=== PATIENT | male | born 1990 | race Caucasian/White ===

== ENCOUNTER 2019-01-23 00:09 | Emergency (ER) | payer SELFPAY ==
[2019-01-23] MEDS ORDERED: MVI, Adult with Vitamin K 10 ML, Folic Acid 1 MG, Thiamine 100 MG in Lactated Ringers 1... IV ONE ×4 (00:13)
[2019-01-23 00:21] VITALS: BP 145/97; PULSE 117
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
[2019-01-23 00:44] LABS: ANION GAP 14.1; CHLORIDE,CL 106 mmol/L (101-111); SODIUM,NA 140 mmol/L (135-145)
[2019-01-23 00:48] LABS: ACETAMINOPHEN < 10 ug/mL
== END 2019-01-23 01:38 ==
LOC: DL.ED 00:09
DX: F10.10 Alcohol abuse, uncomplicated (principal); F17.210 Nicotine dependence, cigarettes, uncomplicated; Y90.8 Blood alcohol level of 240 mg/100 ml or more
CPT/HCPCS: 36415; 80053; 80305; 80320; 80329; 81001; 85025; 96374; 99283; J3411; J7120; G0480; J3490

== ENCOUNTER 2019-07-11 01:26 | Emergency (ER) | payer SELFPAY ==
[2019-07-11 01:34] VITALS: BP 135/86; PULSE 100
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
[2019-07-11] MEDS ORDERED: Diphtheria,Pertussis(Acell),Tetanus Vaccine 0.5 ML SDV IM ONE (01:42)
== END 2019-07-11 01:50 ==
LOC: DL.ED 01:26
DX: S01.01XA Laceration without foreign body of scalp, initial encounter (principal); W22.8XXA Striking against or struck by other objects, initial encounter; Z23 Encounter for immunization
CPT/HCPCS: 12001; 90471; 90715; 99282; 99283

== ENCOUNTER 2019-07-22 15:50 | Emergency (ER) | payer SELFPAY ==
[2019-07-22 16:24] VITALS: BP 130/75
--- NOTE | 2019-07-22 16:24 | EDM.PDOC ---
Scribed by Tomasa Benitez 07/22/19 [id number] for Hira Jasso MD ED HPI GENERAL MEDICAL PROBLEM - General Chief Complaint: Wound Recheck Stated Complaint: BRITTA IN HEAD NEED TO BE TAKEN OUT Time Seen by Provider: 07/22/19 16:19 Source of Information: Reports: Patient, RN, RN Notes Reviewed History Limitations: Reports: No Limitations - History of Present Illness INITIAL COMMENTS - FREE TEXT/NARRATIVE: Patient presents to ER for staple removal from left frontal scalp. The wound is well healed and ready for britta to be removed. Location: Reports: Head Severity: Mild - Related Data Allergies Allergy/AdvReac Type Severity Reaction Status Date / Time No Known Allergies Allergy Verified 01/23/19 00:14 Home Meds: Home Meds . [No Known Home Meds] 07/13/15 [History] Past Medical History HEENT History: Reports: None Cardiovascular History: Reports: None Respiratory History: Reports: None Gastrointestinal History: Reports: None Genitourinary History: Reports: None Musculoskeletal History: Reports: None Neurological History: Reports: None Psychiatric History: Reports: None Endocrine/Metabolic History: Reports: None Hematologic History: Reports: None Immunologic History: Reports: None Oncologic (Cancer) History: Reports: None Dermatologic History: Reports: None - Infectious Disease History Infectious Disease History: Reports: None - Past Surgical History Head Surgeries/Procedures: Reports: None Social & Family History - Family History Family Medical History: Noncontributory - Caffeine Use Caffeine Use: Reports: None ED ROS GENERAL - Review of Systems Review Of Systems: Comprehensive ROS is negative, except as noted in HPI. ED EXAM, SKIN/RASH Exam: See Below Exam Limited By: No Limitations General Appearance: Alert, WD/WN, No Apparent Distress Head: Normocephalic, Other (well healed laceration on left gnosticism. Two intact britta. ) Respiratory/Chest: No Respiratory Distress Neurological: Alert, CN II-XII Intact, No Motor/Sensory Deficits Skin: Warm, Dry, Intact Course - Re-Assessments/Exams Free Text/Narrative Re-Assessment/Exam: 07/22/19 16:22 Turney removed by RN. No complications. Departure - Departure Time of Disposition: 16:23 Disposition: Home, Self-Care 01 Condition: Good Clinical Impression: Encounter for removal of britta - Discharge Information *PRESCRIPTION DRUG MONITORING PROGRAM REVIEWED*: Not Applicable *COPY OF PRESCRIPTION DRUG MONITORING REPORT IN PATIENT KEVIN: Not Applicable Instructions: Wound Closure Removal, Care After Forms: ED Department Discharge Additional Instructions: Follow up in clinic if any further problems. Sepsis Event Note - Focused Exam Date Exam was Performed: 07/22/19 Time Exam was Performed: 16:24 I have read and agree with the documentation that has been completed regarding this visit. By signing this record, I attest that the documentation was completed in my physical presence and is an accurate record of the encounter.
== END 2019-07-22 16:41 | disposition home or self-care (01) ==
LOC: DL.ED 15:50
DX: S01.01XD Laceration without foreign body of scalp, subsequent encounter (principal); X58.XXXD Exposure to other specified factors, subsequent encounter
CPT/HCPCS: 99281

== ENCOUNTER 2019-09-27 14:10 | Emergency (ER) | payer SELFPAY ==
[2019-09-27 14:25] VITALS: BP 135/84; PULSE 94
[2019-09-27] MEDS ORDERED: Lidocaine 5% Oint 35.44 GM Tube TOP ONE (14:30)
[2019-09-27] MEDS ORDERED: Silver Sulfadiazine 1% Crm 50 GM Tube TOP ONE (14:30)
[2019-09-27] MEDS ORDERED: Ibuprofen 800 MG Tab PO ONE (14:31)
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
--- NOTE | 2019-09-27 15:09 | CR ---
PROCEDURE INFORMATION: Exam: XR Right Ankle Exam date and time: 09/27/2019 2:39 PM Age: 29 years old Clinical indication: Other: Pain; Additional info: Fall, RT knee and RT ankle injury TECHNIQUE: Imaging protocol: XR Right ankle. Views: 3 or more views. COMPARISON: No relevant prior studies available. FINDINGS: Bones/joints: There is no evidence of acute fracture. There is no evidence of joint malalignment or dislocation. Soft tissues: There are no soft tissue masses or fluid collections. IMPRESSION: 1. No evidence of acute fracture. 2. No evidence of acute dislocation.
--- NOTE | 2019-09-27 15:09 | CR ---
PROCEDURE INFORMATION: Exam: XR Right Knee Exam date and time: 09/27/2019 2:43 PM Age: 29 years old Clinical indication: Other: Pain; Additional info: Fall, RT knee and RT ankle injury TECHNIQUE: Imaging protocol: XR Right knee. Views: 3 views. COMPARISON: No relevant prior studies available. FINDINGS: Bones/joints: There is no evidence of acute fracture. There is no evidence of joint malalignment or dislocation. Soft tissues: There are no soft tissue masses or fluid collections. IMPRESSION: 1. No evidence of acute fracture. 2. No evidence of acute dislocation.
== END 2019-09-27 15:31 | disposition home or self-care (01) ==
LOC: DL.ED 14:10
DX: T23.142A Burn of first degree of multiple left fingers (nail), including thumb, initial encounter (principal); S83.91XA Sprain of unspecified site of right knee, initial encounter; S93.491A Sprain of other ligament of right ankle, initial encounter; F17.210 Nicotine dependence, cigarettes, uncomplicated; X97.XXXA Assault by smoke, fire and flames, initial encounter
CPT/HCPCS: 16020; 73562; 73610; 99283; A9270

== ENCOUNTER 2020-02-02 20:18 | Emergency (ER) | payer SELFPAY ==
[2020-02-02 20:45] VITALS: BP 136/88; PULSE 110
[2020-02-02] MEDS ORDERED: Lidocaine 1% with EPINEPHrine 1:100,000 20 ML MDV INJECT ONE (21:24)
--- NOTE | 2020-02-02 22:01 | CT ---
PROCEDURE INFORMATION: Exam: CT Head Without Contrast Exam date and time: 02/02/2020 9:09 PM Age: 29 years old Clinical indication: Other: Fell down stairs left face jaw pain, lac R tooth TECHNIQUE: Imaging protocol: Computed tomography of the head without contrast. Radiation optimization: All CT scans at this facility use at least one of these dose optimization techniques: automated exposure control; mA and/or kV adjustment per patient size (includes targeted exams where dose is matched to clinical indication); or iterative reconstruction. COMPARISON: No relevant prior studies available. FINDINGS: Brain: No mass effect or midline shift. No abnormal densities are seen intracranially; no sign of acute intracranial hemorrhage or cerebral edema. Cerebral ventricles: No ventriculomegaly. Bones/joints: Skull base and overlying calvarium are intact. No lytic or osteosclerotic lesions. Paranasal sinuses: Visualized sinuses are unremarkable. No fluid levels. Mastoid air cells: Visualized mastoid air cells are well aerated. Soft tissues: Unremarkable. IMPRESSION: No sign of acute intracranial injury or skull fracture.
--- NOTE | 2020-02-02 22:05 | CT ---
PROCEDURE INFORMATION: Exam: CT Maxillofacial Without Contrast Exam date and time: 02/02/2020 9:09 PM Age: 29 years old Clinical indication: Other: Fell down stairs left face jaw pain, lac R tooth TECHNIQUE: Imaging protocol: Computed tomography images of the face without contrast. Radiation optimization: All CT scans at this facility use at least one of these dose optimization techniques: automated exposure control; mA and/or kV adjustment per patient size (includes targeted exams where dose is matched to clinical indication); or iterative reconstruction. COMPARISON: No relevant prior studies available. FINDINGS: Orbital cavity: Orbital floors, roofs, lateral diallo and the lamina papyracea are intact. There is no retro-orbital emphysema or stranding/hemorrhage of intraconal fat. Globes are normal in contour and density. Bones/joints: 2 mm displaced fracture right body of mandible involving socket for right lateral incisor. Nondisplaced oblique fracture through left coronoid and mandibular ramus. Paranasal sinuses: Normal. No air-fluid levels. Soft tissues: Soft tissue emphysema right floor of mouth. IMPRESSION: 1. 2 mm displaced fracture right body of mandible involving socket for right lateral incisor. 2. Nondisplaced oblique fracture through left coronoid and mandibular ramus.
--- NOTE | 2020-02-02 22:07 | CT ---
PROCEDURE INFORMATION: Exam: CT Cervical Spine Without Contrast Exam date and time: 02/02/2020 9:09 PM Age: 29 years old Clinical indication: Other: Fell down stairs left face jaw pain, lac R tooth TECHNIQUE: Imaging protocol: Computed tomography images of the cervical spine without contrast. Radiation optimization: All CT scans at this facility use at least one of these dose optimization techniques: automated exposure control; mA and/or kV adjustment per patient size (includes targeted exams where dose is matched to clinical indication); or iterative reconstruction. COMPARISON: No relevant prior studies available. FINDINGS: Bones/joints: There are no perched or locked facets and the craniocervical relationship is normal. No acute cervical spine fracture. Discs/Spinal canal/Neural foramina: Age-appropriate. Lungs: Lung apices are normal. Soft tissues: Unremarkable. IMPRESSION: 1. No sign of acute cervical spine injury. 2. Mandibular fractures, reported elsewhere.
[2020-02-02] MEDS ORDERED: fentaNYL 100 MCG/2 ML SDV IVPUSH ONE ×2 (22:27→23:15)
[2020-02-02] MEDS ORDERED: Ondansetron 4 MG/2 ML SDV IVPUSH ONE (22:27)
[2020-02-02 22:43] LABS: ANION GAP 9.9 mEq/L (7-13); CHLORIDE,CL 101 mmol/L (98-107); SODIUM,NA 137 mmol/L (136-145)
[2020-02-02] MEDS ORDERED: cefTRIAXone 1 GM in Sodium Chloride 0.9% 50 ML IV ONE (23:08)
--- NOTE | 2020-02-02 23:49 | EDM.PDOC ---
ED HPI GENERAL MEDICAL PROBLEM - General Chief Complaint: Laceration Stated Complaint: BOTTOM LIP INSIDE LACERATION Time Seen by Provider: 02/02/20 20:45 Source of Information: Reports: Patient History Limitations: Reports: No Limitations - History of Present Illness INITIAL COMMENTS - FREE TEXT/NARRATIVE: ED ambulatory with c/o pain to lower chin and left side of face with cut to lower front tooth. States going fast down stairs, fell face forward landed on face no loss of consciousness, Denied other injury, Admits one drink earlier tonight. Right Lower Jaw Pain Score (Numeric/FACES): 5 - Related Data Allergies Allergy/AdvReac Type Severity Reaction Status Date / Time No Known Allergies Allergy Verified 02/02/20 20:33 Home Meds: Home Meds . [No Known Home Meds] 07/13/15 [History] Past Medical History HEENT History: Reports: None Cardiovascular History: Reports: None Respiratory History: Reports: None Gastrointestinal History: Reports: None Genitourinary History: Reports: None Musculoskeletal History: Reports: None Neurological History: Reports: None Psychiatric History: Reports: None Endocrine/Metabolic History: Reports: None Hematologic History: Reports: None Immunologic History: Reports: None Oncologic (Cancer) History: Reports: None Dermatologic History: Reports: None - Infectious Disease History Infectious Disease History: Reports: None - Past Surgical History Head Surgeries/Procedures: Reports: None Social & Family History - Family History Family Medical History: No Pertinent Family History - Tobacco Use Tobacco Use Status *Q: Current Every Day Tobacco User Years of Tobacco use: 16 Packs/Tins Daily: 1.5 Second Hand Smoke Exposure: Yes - Caffeine Use Caffeine Use: Reports: Coffee, Energy Drinks, Soda - Alcohol Use Date of Last Drink: 02/02/20 Time of Last Drink: 20:00 - Recreational Drug Use Recreational Drug Use: Yes Recreational Drug Type: Reports: Marijuana/Hashish Recreational Drug Use Frequency: Daily - Living Situation & Occupation Living situation: Reports: with Family ED ROS GENERAL - Review of Systems Review Of Systems: Comprehensive ROS is negative, except as noted in HPI. ED EXAM, SKIN/RASH Exam: See Below Exam Limited By: No Limitations General Appearance: Alert, Mild Distress, Thin Eye Exam: Bilateral Eye: EOMI Ears: Normal External Exam Nose: Normal Inspection Throat/Mouth: Normal Inspection, No Airway Compromise. No: Normal Teeth, Normal Voice Head: Normocephalic, Facial Tenderness (left and right lower) Neck: Normal Inspection, Full Range of Motion, Other (cyst left neck). No: Tender Lateral, Tender Midline Respiratory/Chest: No Respiratory Distress, Lungs Clear, Normal Breath Sounds Cardiovascular: Normal Peripheral Pulses, Regular Rate, Rhythm GI/Abdominal: Normal Bowel Sounds, Non-Tender Back Exam: Normal Inspection, Full Range of Motion Extremities: Normal Inspection Neurological: Alert, Oriented, CN II-XII Intact, Normal Cognition Psychiatric: Normal Affect, Normal Mood Skin: Warm, Dry, Wound/Incision (5mm irregular laceration right lower gum base right incisor) Associated features: Tenderness Course - Vital Signs Last Recorded V/S: Last Vital Signs Temp 98.8 F 02/02/20 20:40 Pulse 110 H 02/02/20 20:40 Resp 16 02/02/20 20:40 BP 136/88 02/02/20 20:40 Pulse Ox 99 02/02/20 20:40 - Orders/Labs/Meds Labs: Laboratory Tests 02/02/20 02/02/20 02/02/20 Range/Units 22:01 22:01 23:48 WBC 14.2 H (5.0-10.0) 10^3/uL RBC 4.60 (4.6-6.2) 10^6/uL Hgb 16.4 (14.0-18.0) g/dL Hct 45.2 (40.0-54.0) % MCV 98.3 (80-100) fL MCH 35.7 H (27.0-34.0) pg MCHC 36.3 H (33.0-35.0) g/dL Plt Count 215 (150-450) 10^3/uL Neut % (Auto) 89.7 H (42.2-75.2) % Lymph % (Auto) 4.9 L (20.5-50.1) % Waldo % (Auto) 5.1 (2-8) % Eos % (Auto) 0.2 L (1.0-3.0) % Baso % (Auto) 0.1 (0.0-1.0) % Sodium 137 (136-145) mmol/L Potassium 3.9 (3.5-5.1) mmol/L Chloride 101 (98-107) mmol/L Carbon Dioxide 30 (21-32) mmol/L Anion Gap 9.9 (7-13) mEq/L BUN 10 (7-18) mg/dL Creatinine 0.93 (0.70-1.30) mg/dL Est Cr Clr Drug Dosing 104.32 mL/min Estimated GFR (MDRD) > 60 BUN/Creatinine Ratio 10.8 (No establ ref range) Glucose 100 H (74-99) mg/dL Calcium 9.1 (8.5-10.1) mg/dL Total Bilirubin 0.2 (0.2-1.0) mg/dL AST 17 (15-37) U/L ALT 30 (16-63) U/L Alkaline Phosphatase 79 (46-116) U/L Total Protein 7.2 (6.4-8.2) g/dL Albumin 4.4 (3.4-5.0) g/dL Globulin 2.8 Albumin/Globulin Ratio 1.6 Ethyl Alcohol < 3 (0) mg/dL SARS-CoV-2 RNA (ARON) Negative (NEGATIVE) Meds: Medications Discontinued Medications Generic Name Dose Route Start Last Admin Trade Name Juventino PRN Reason Stop Dose Admin Fentanyl 50 mcg 02/02/20 22:27 02/02/20 22:37 Sublimaze IVPUSH 02/02/20 22:28 50 mcg ONETIME ONE Administration Fentanyl 50 mcg 02/02/20 23:15 02/02/20 23:25 Sublimaze IVPUSH 02/02/20 23:16 50 mcg ONETIME ONE Administration Ceftriaxone Sodium 1 gm/ 50 mls @ 100 mls/hr 02/02/20 23:08 02/02/20 23:15 Sodium Chloride IV 02/02/20 23:37 100 mls/hr ONETIME ONE Administration Lidocaine/Epinephrine 20 ml 02/02/20 21:24 02/02/20 21:40 Xylocaine 1% With Epinephrine 1:100,000 INJECT 02/02/20 21:25 20 ml ONETIME ONE Administration Ondansetron HCl 4 mg 02/02/20 22:27 02/02/20 22:36 Zofran IVPUSH 02/02/20 22:28 4 mg ONETIME ONE Administration - Re-Assessments/Exams Free Text/Narrative Re-Assessment/Exam: 02/05/20 17:53 [facility]. Tx via ALS for further management bilateral mandibular fracture. Departure - Departure Time of Disposition: 23:42 Disposition: Home, Self-Care 01 Condition: Good Clinical Impression: Bilateral mandibular fracture Qualifiers: Encounter type: initial encounter Fracture type: open Qualified Code(s): S02.609B - Fracture of mandible, unspecified, initial encounter for open fracture Fall Qualifiers: Encounter type: initial encounter Qualified Code(s): W19.XXXA - Unspecified fall, initial encounter - Discharge Information *PRESCRIPTION DRUG MONITORING PROGRAM REVIEWED*: No Referrals: PCP,None [Primary Care Provider] - Forms: ED Department Discharge Sepsis Event Note (ED) - Evaluation Sepsis Screening Result: No Definite Risk
== END 2020-02-03 00:44 | disposition home or self-care (01) ==
LOC: DL.ED 20:18
DX: S02.601B Fracture of unspecified part of body of right mandible, initial encounter for open fracture (principal); S02.632B Fracture of coronoid process of left mandible, initial encounter for open fracture; S02.642B Fracture of ramus of left mandible, initial encounter for open fracture; L72.9 Follicular cyst of the skin and subcutaneous tissue, unspecified; F17.210 Nicotine dependence, cigarettes, uncomplicated; Z20.828 Contact with and (suspected) exposure to other viral communicable diseases; W10.9XXA Fall (on) (from) unspecified stairs and steps, initial encounter
CPT/HCPCS: 36415; 70450; 70486; 72125; 80053; 80307; 85025; 87635; 96374; 96375; 96376; 99284; 99285; J0696; J2405; J3010; J7050; U0002

== ENCOUNTER 2022-01-20 02:27 | Emergency (ER) | payer MEDICAID, OTHER ==
[2022-01-20 02:59] VITALS: BP 143/99; PULSE 87
== END 2022-01-20 02:50 | disposition home or self-care (01) ==
LOC: DL.ED 02:27
DX: S01.81XA Laceration without foreign body of other part of head, initial encounter (principal)
CPT/HCPCS: 99283